=== PATIENT | male | born 2005 | race Caucasian/White ===

== ENCOUNTER 2024-07-08 13:13 | Emergency (ER) | payer OTHER ==
[~2024-07-08] VITALS: Ht 170.2 cm; Wt 49.9 kg
[2024-07-08 13:17] VITALS: BP 139/88; RESP 16; TEMP 37.2; O2SAT 98
[2024-07-08 13:18] VITALS: PULSE 98; O2SAT 100
[2024-07-08] MEDS ORDERED: BO1 TP (14:22)
[2024-07-08] MEDS ORDERED: METO5TAB86 MT (14:22)
== END 2024-07-08 14:45 | disposition home or self-care (01) ==
LOC: ER 13:13
DX: R10.84 Generalized abdominal pain (principal)
CPT/HCPCS: 99283